=== PATIENT | male | born 1985 | race Caucasian/White ===

== ENCOUNTER 2017-01-28 17:16 | Emergency (ER) | payer SELFPAY ==
[2017-01-28] MEDS ORDERED: Aspirin 81 MG Tab.Chew PO ONE (17:24)
--- NOTE | 2017-01-28 17:24 | EDM.PDOC ---
ED HPI GENERAL MEDICAL PROBLEM - General Chief Complaint: Chest Pain Stated Complaint: HIGH BLOOD PRESSURE Time Seen by Provider: 01/28/17 17:23 Source of Information: Reports: Patient History Limitations: Reports: No Limitations - History of Present Illness INITIAL COMMENTS - FREE TEXT/NARRATIVE: HISTORY AND PHYSICAL: History of present illness: Patient is a 31-year-old male presents to the emergency room with complaints of midsternal chest pain. He states he was working this morning performing his normal job duties which are mildly physical when the midsternal chest pain started. States that he had some shortness of breath and a "funny sensation" in bilateral upper extremities. As the pain has not subsided he decided he wanted to be evaluated in the emergency room. He states "it's not so much pain more than just a dull pressure". Has a known history of hypertension but states he has never taken any medication for this. Current smoker, 20 year pack per day history. States his father has a history of heart disease. Review of systems: As per history of present illness and below otherwise all systems reviewed and negative. Past medical history: As per history of present illness and as reviewed below otherwise noncontributory. Surgical history: As per history of present illness and as reviewed below otherwise noncontributory. Social history: No reported history of drug or alcohol abuse. Family history: As per history of present illness and as reviewed below otherwise noncontributory. Physical exam: Gen.: Well-developed and well-nourished 31-year-old male. Able to speak in full sentences without shortness of breath. Alert and oriented. Appears in no acute distress. HEENT: Atraumatic, normocephalic, pupils reactive, negative for conjunctival pallor or scleral icterus, mucous membranes moist, throat clear, neck supple, nontender, trachea midline. Lungs: Clear to auscultation, breath sounds equal bilaterally, chest nontender. Heart: S1S2, regular, negative for clicks, rubs, or JVD. Abdomen: Soft, nondistended, nontender. Negative for masses or hepatosplenomegaly. Negative for costovertebral tenderness. Pelvis: Stable nontender. Genitourinary: Deferred. Rectal: Deferred. Extremities: Atraumatic, negative for cords or calf pain. Neurovascular unremarkable. Neuro: Awake, alert, oriented. Cranial nerves II through XII unremarkable. Cerebellum unremarkable. Motor and sensory unremarkable throughout. Exam nonfocal. Discussed patient's lab results, he states he currently is pain-free. He states he has been taking a friend's lisinopril at home to manage his blood pressure. 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 He reports "to be honest and came in here to get a prescription for this medication". He would like to go home. He does have a follow-up appointment at our clinic in 10 days. I will give him a limited amount of lisinopril until he is able to follow-up at his primary care provider's appointment. Patient is agreeable to plan of care and denies any further questions at this time. Diagnostics: CBC, CMP, troponin, EKG, one view chest Therapeutics: Aspirin Impression: Nonspecific chest pain Hypertension Plan: 1. Please take your lisinopril 1 tab once daily. Follow-up with your primary care provider, as he state you have an appointment in 10 days. They need to further manage her medications. 2. Return to the ED as needed and as discussed. Definitive disposition and diagnosis as appropriate pending reevaluation and review of above. Onset: Today Duration: Hour(s): Location: Reports: Chest Chest Pain Score (Numeric/FACES): 2 - Related Data Allergies Allergy/AdvReac Type Severity Reaction Status Date / Time No Known Allergies Allergy Verified 01/28/17 17:18 Home Meds: Home Meds . [No Known Home Meds] 01/28/17 [History] Past Medical History Cardiovascular History: Reports: Hypertension ED ROS GENERAL - Review of Systems Review Of Systems: ROS reveals no pertinent complaints other than HPI. ED EXAM, GENERAL - Physical Exam Exam: See Below (See dictation) Course - Vital Signs Last Recorded V/S: Last Vital Signs Temp 36.4 C 01/28/17 17:24 Pulse 89 01/28/17 17:24 Resp 18 01/28/17 17:24 BP 145/102 H 01/28/17 17:24 Pulse Ox 95 01/28/17 17:24 - Orders/Labs/Meds Orders: Active Orders 24 hr Category Date Time Status EKG Documentation Completion [RC] STAT Care 01/28/17 17:24 Active Chest 1V Frontal [CR] Stat Exams 01/28/17 17:24 Taken Labs: Laboratory Tests 01/28/17 01/28/17 Range/Units 17:32 17:32 WBC 11.66 H (4.0-11.0) K/uL RBC 5.37 (4.50-5.90) M/uL Hgb 17.1 H (13.0-17.0) g/dL Hct 48.0 (38.0-50.0) % MCV 89.4 (80.0-98.0) fL MCH 31.8 (27.0-32.0) pg MCHC 35.6 (31.0-37.0) g/dL RDW Std Deviation 42.6 (28.0-62.0) fl RDW Coeff of Harley 13 (11.0-15.0) % Plt Count 301 (150-400) K/uL MPV 10.80 (7.40-12.00) fL Add Manual Diff YES Neutrophils % (Manual) 74 (48.0-80.0) % Band Neutrophils % 4 % Lymphocytes % (Manual) 19 (16.0-40.0) % Monocytes % (Manual) 2 (0.0-15.0) % Eosinophils % (Manual) 1 (0.0-7.0) % Nucleated RBC % 0.0 /100WBC Absolute Seg Neuts 8.6 H (1.4-5.7) Band Neutrophils # 0.5 Lymphocytes # (Manual) 2.2 (0.6-2.4) Monocytes # (Manual) 0.2 (0.0-0.8) Eosinophils # (Manual) 0.1 (0.0-0.7) Nucleated RBCs # 0 K/uL Sodium 137 (136-146) mmol/L Potassium 4.0 (3.5-5.1) mmol/L Chloride 106 (98-110) mmol/L Carbon Dioxide 23 (21-31) mmol/L BUN 14 (6.0-23.0) mg/dL Creatinine 0.9 (0.6-1.5) mg/dL Est Cr Clr Drug Dosing 120.54 mL/min Estimated GFR (MDRD) > 60.0 ml/min Glucose 94 (60-110) mg/dL Calcium 9.7 (8.8-10.8) mg/dL Total Bilirubin 0.3 (0.1-1.5) mg/dL AST 38 (5-40) IU/L ALT 65 H (8-54) IU/L Alkaline Phosphatase 76 (40-150) Troponin I < 0.10 (0.0-0.29) NG/ML Total Protein 8.1 H (6.0-8.0) g/dL Albumin 4.7 (3.5-5.0) g/dL Globulin 3.4 (2.0-3.5) g/dL Albumin/Globulin Ratio 1.4 (1.3-2.8) Meds: Medications Discontinued Medications Generic Name Dose Route Start Last Admin Trade Name Shon PRN Reason Stop Dose Admin Aspirin 324 mg 01/28/17 17:24 01/28/17 17:32 Aspirin PO 01/28/17 17:25 324 mg ONETIME ONE Administration Lisinopril 10 mg 01/28/17 18:29 Prinivil PO 01/28/17 18:30 ONETIME ONE Departure - Departure Time of Disposition: 18:34 Disposition: Home, Self-Care 01 Clinical Impression: Nonspecific chest pain High blood pressure Qualifiers: Hypertension type: unspecified Qualified Code(s): I10 - Essential (primary) hypertension Referrals: PCP,None [Primary Care Provider] - Forms: ED Department Discharge Additional Instructions: My general discharge The following information is given to patients seen in the emergency department who are being discharged to home. This information is to outline your options for follow-up care. We provide all patients seen in our emergency department with a follow-up referral. The need for follow-up, as well as the timing and circumstances, are variable depending upon the specifics of your emergency department visit. If you don't have a primary care physician on staff, we will provide you with a referral. We always advise you to contact your personal physician following an emergency department visit to inform them of the circumstance of the visit and for follow-up with them and/or the need for any referrals to a consulting specialist. The emergency department will also refer you to a specialist when appropriate. This referral assures that you have the opportunity for follow-up care with a specialist. All of these measure are taken in an effort to provide you with optimal care, which includes your follow-up. Under all circumstances we always encourage you to contact your private physician who remains a resource for coordinating your care. When calling for follow-up care, please make the office aware that this follow-up is from your recent emergency room visit. If for any reason you are refused follow-up, please contact the [facility] Department at and asked to speak to the emergency department charge nurse. [facility] [address] [place] [id number] 1. Please take your lisinopril 1 tab once daily, this is an ALFIE-inhibitor antihypertensive medication. Follow-up with your primary care provider, as he state you have an appointment in 10 days. They need to further manage her medications. 2. Return to the ED as needed and as discussed. - My Orders Last 24 Hours: My Active Orders 01/28/17 17:24 EKG Documentation Completion [RC] STAT Chest 1V Frontal [CR] Stat - Assessment/Plan Last 24 Hours: My Active Orders 01/28/17 17:24 EKG Documentation Completion [RC] STAT Chest 1V Frontal [CR] Stat
[2017-01-28 18:02] LABS: CHLORIDE,CL 106 mmol/L (98-110); SODIUM,NA 137 mmol/L (136-146)
[2017-01-28] MEDS ORDERED: Lisinopril 10 MG Tab PO ONE (18:29)
--- NOTE | 2017-01-29 10:04 | CR ---
EXAM DATE: 01/28/17 PATIENT'S AGE: 31 Patient: ELVIRA SALAZAR Facility: [place], [place] Site . Site : 1985 Study: XRay Chest [id number]/20/2017 5:56:59 PM Ordering Physician: Doctor Fonseca Final Report: INDICATIONS: Chest pain. High blood pressure. Weakness and fatigue. TECHNIQUE: Chest 1 view. COMPARISON: None FINDINGS: No pneumothorax, pleural effusion or airspace consolidation. Cardiac and mediastinal contours are within normal limits. Upper abdomen and osseous structures show no acute abnormality. Bilateral nipple ornamentation. IMPRESSION: No evidence of acute cardiopulmonary disease. Dictated by Madhav Layton MD @ 01/28/2017 6:23:29 PM Dictated by: Madhav Layton MD @ 01/28/2017 18:23:42 (Electronic Signature) Report Signed by Proxy. [facility]
== END 2017-01-28 18:44 | disposition home or self-care (01) ==
LOC: MW.ED 17:16
DX: R07.89 Other chest pain (principal); I10 Essential (primary) hypertension
CPT/HCPCS: 36415; 71010; 80053; 84484; 85025; 93005; 99285; A9270

== ENCOUNTER 2019-04-25 08:27 | Emergency (ER) | payer OTHER ==
--- NOTE | 2019-04-25 09:02 | EDM.PDOC ---
ED HPI GENERAL MEDICAL PROBLEM - General Chief Complaint: Lower Extremity Injury/Pain Stated Complaint: RT KNEE PAIN Time Seen by Provider: 04/25/19 09:02 Source of Information: Reports: Patient - History of Present Illness INITIAL COMMENTS - FREE TEXT/NARRATIVE: Patient complains of right knee pain of moderate severity. Began around 7 or 730 this morning when he jumped off of a trailer. He said the distance that he jumped was about 2 feet above ground. He felt a popping sensation when he landed. He has pain that is worse in the anterior medial right knee. The region where he points is medial to the patella. He did not notice much swelling. He says the pain is worse if he tries to fully straighten (extend) the affected knee. Also worse with weightbearing. Says he has to bend the knee a bit so he can walk R knee Pain Score (Numeric/FACES): 6 - Related Data Allergies Allergy/AdvReac Type Severity Reaction Status Date / Time No Known Allergies Allergy Verified 01/28/17 17:18 Home Meds: Home Meds . [No Known Home Meds] 01/28/17 [History] Past Medical History Cardiovascular History: Reports: Hypertension Social & Family History - Caffeine Use Caffeine Use: Reports: Coffee, Energy Drinks, Soda, Tea Review of Systems - Review of Systems Review Of Systems: See Below Musculoskeletal: Reports: Joint Pain (ROS positive for rt knee pain, mild swelling.) Skin: Denies: Bruising Neurological: Denies: Numbness (ROS positive for rt knee pain.), Paresthesia ED EXAM, GENERAL - Physical Exam Exam: See Below Free Text/Narrative:: general: alert, well appearing, no acute distress HEENT: Atraumatic, normocephalic, pupils reactive, negative for conjunctival pallor or scleral icterus, mucous membranes moist, throat clear, handling oral secretions well. CV: good pulses in right lower extremity Skin: warm, dry, good turgor. Skin of right lower extremity warm, dry, well perfused. Two mm ecchymosis in the medial aspect of the right knee. Musculoskeletal: soft compartments in RLE. Walks with limp favoring RLE. Small amount of swelling of the proximal aspect of the right knee. + flexion and extension of the right knee, but extension increases pain. Prefers to hold the knee in about 60 degrees of flexion. No varus or valgus instabilities. No joint subluxation or dislocation. Extremities: Atraumatic, negative for cords or calf pain. Neurovascular unremarkable.No right lower extremity bony deformity or crepitus. Neuro: Awake, alert, oriented. Cranial nerves II through XII unremarkable. Sensation intact in right lower extremity.Motor and sensory unremarkable throughout. Impression: Right knee sprain, rule out fracture -Toradol -Right knee x-ray Course - Vital Signs Last Recorded V/S: Last Vital Signs Temp 97.4 F 04/25/19 08:44 Pulse 83 04/25/19 08:44 Resp 20 04/25/19 08:44 BP 148/97 H 04/25/19 08:44 Pulse Ox 98 04/25/19 08:44 - Orders/Labs/Meds Orders: Active Orders 24 hr Category Date Time Status Communication Order [RC] STAT Care 04/25/19 10:52 Active Ready for Discharge [RC] PER UNIT ROUTINE Care 04/25/19 10:56 Active Meds: Medications Discontinued Medications Generic Name Dose Route Start Last Admin Trade Name Shon PRN Reason Stop Dose Admin Ketorolac Tromethamine 60 mg 04/25/19 09:20 04/25/19 10:04 Toradol IM 04/25/19 09:21 Not Given ONETIME ONE - Radiology Interpretation Free Text/Narrative:: rt knee: no acute fx MDM Discussed with patient that while there is no bony injury, I suspect that there is a ligament injury. Explained ligamentous structures to tie bones together. Explained that the injuries to ligaments do not show up on x-ray and are best seen on MRI. Will give knee immobilizer and crutches. Is referred to medicine and Ortho clinics. Return here for new, changing, worsening symptoms. Over-the -counter ibuprofen as needed for pain. Rest, ice, compression, elevation. Departure - Departure Time of Disposition: 10:54 Disposition: Home, Self-Care 01 Condition: Good Clinical Impression: Sprain of knee - Discharge Information Instructions: Crutch Use, Adult, [id number], Knee Sprain, Adult, [id number] Referrals: PCP,None [Primary Care Provider] - 1 Week ( [facility] - Internal Medicine [address] [place] [id number] Follow up in medicine clinic within 3 to 5 days. [facility] - Orthopedic Clinic Professional [facility] [address] [place] [address], [address] [place] [address] Folow up in orthopedics clinic within 7 to 10 days.) Forms: ED Department Discharge Additional Instructions: For pain, take two or three 200 mg over the counter ibuprofen tabs with FOOD every 8 hours for up to five days. The following information is given to patients seen in the emergency department who are being discharged to home. This information is to outline your options for follow-up care. We provide all patients seen in our emergency department with a follow-up referral. The need for follow-up, as well as the timing and circumstances, are variable depending upon the specifics of your emergency department visit. If you don't have a primary care physician on staff, we will provide you with a referral. We always advise you to contact your personal physician following an emergency department visit to inform them of the circumstance of the visit and for follow-up with them and/or the need for any referrals to a consulting specialist. The emergency department will also refer you to a specialist when appropriate. This referral assures that you have the opportunity for follow-up care with a specialist. All of these measure are taken in an effort to provide you with optimal care, which includes your follow-up. Under all circumstances we always encourage you to contact your private physician who remains a resource for coordinating your care. When calling for follow-up care, please make the office aware that this follow-up is from your recent emergency room visit. If for any reason you are refused follow-up, please contact the [facility] Emergency Department at and ask to speak to the emergency department charge nurse. Sepsis Event Note - Evaluation Sepsis Screening Result: No Definite Risk - Focused Exam Date Exam was Performed: 04/25/19 Time Exam was Performed: 21:14 - My Orders Last 24 Hours: My Active Orders 04/25/19 10:52 Communication Order [RC] STAT 04/25/19 10:56 Ready for Discharge [RC] PER UNIT ROUTINE - Assessment/Plan Last 24 Hours: My Active Orders 04/25/19 10:52 Communication Order [RC] STAT 04/25/19 10:56 Ready for Discharge [RC] PER UNIT ROUTINE
[2019-04-25] MEDS ORDERED: Ketorolac 60 MG/2 ML SDV IM ONE (09:20)
--- NOTE | 2019-04-25 10:17 | CR ---
Right knee: AP, lateral and sunrise patellar views of the right knee were obtained. Comparison: No previous knee exam. Medial and lateral joint compartments are maintained in height. No joint effusion is seen. Right patellofemoral joint appears within normal limits. No acute fracture or other bony abnormality is identified. Impression: 1. No abnormality is appreciated on 3 view right knee exam. Diagnostic code #1 This report was dictated in Mountain Standard Time
== END 2019-04-25 11:15 | disposition home or self-care (01) ==
LOC: MW.ED 08:27
DX: S83.91XA Sprain of unspecified site of right knee, initial encounter (principal); I10 Essential (primary) hypertension; W17.89XA Other fall from one level to another, initial encounter; Y93.39 Activity, other involving climbing, rappelling and jumping off
CPT/HCPCS: 73562-26-RT; 73562-RT; 99282; 99283-25

== ENCOUNTER 2019-05-27 08:10 | Day surgery (SDC) | payer OTHER ==
[~2019-05-27 08:10] MED LIST: Lactated Ringers 1,000 ML IV SCH; ceFAZolin 2 GM in Premix Bag 1 BAG IV SCH
[2019-05-27] MEDS ORDERED: HYDROmorphone 2 MG/ML Syringe IVPUSH PRN (08:35)
[2019-05-27] MEDS ORDERED: fentaNYL 100 MCG/2 ML SDV IVPUSH PRN ×2 (08:35→11:14)
[2019-05-27] MEDS ORDERED: Acetaminophen 325 MG/10.15 ML ML PO ONE (09:20)
[2019-05-27] MEDS ORDERED: Bupivacaine 0.5% 30 ML SDV ONE (09:28)
[2019-05-27] MEDS ORDERED: Midazolam 1 MG/ML 2 ML SDV ONE (09:31)
[2019-05-27] MEDS ORDERED: fentaNYL 250 MCG/5 ML SDV ONE (09:31)
[2019-05-27] MEDS ORDERED: Lidocaine 2% 5 ML SDV ONE (09:31)
[2019-05-27] MEDS ORDERED: Dexamethasone 4 MG/ML 5 ML MDV ONE (09:32)
[2019-05-27] MEDS ORDERED: Bupivacaine 0.25%/EPINEPHrine 1:200,000 10 ML SDV ONE (09:33)
[2019-05-27] MEDS ORDERED: Sodium Chloride 0.9% 20 ML ONE (09:34)
--- NOTE | 2019-05-27 09:43 | PCM.PREANE ---
Preanesthetic Assessment - Anesthesia/Transfusion/Family Hx Anesthesia History: Prior Anesthesia Without Reaction Family History of Anesthesia Reaction: No Transfusion History: No Prior Transfusion(s) Intubation History: Unknown - Review of Systems General: No Symptoms Pulmonary: No Symptoms Cardiovascular: No Symptoms Gastrointestinal: No Symptoms Neurological: No Symptoms Other: Reports: None - Physical Assessment NPO Status Date: 05/26/19 NPO Status Time: 23:00 Vital Signs: Last Vital Signs Temp 36.4 C 05/27/19 08:30 Pulse 79 05/27/19 08:30 Resp 16 05/27/19 08:30 BP 155/88 H 05/27/19 08:30 Pulse Ox 99 05/27/19 08:30 Height: 5 ft 10 in Weight: 104.326 kg ASA Class: 2 Mental Status: Alert & Oriented x3 Airway Class: Mallampati = 2 Dentition: Reports: Dentures (upper) Thyro-Mental Finger Breadths: 3 Mouth Opening Finger Breadths: 3 ROM/Head Extension: Full Lungs: Clear to Auscultation, Normal Respiratory Effort Cardiovascular: Regular Rate, Regular Rhythm - Allergies Allergies/Adverse Reactions: Allergies Allergy/AdvReac Type Severity Reaction Status Date / Time No Known Allergies Allergy Verified 05/21/19 07:15 - Blood Blood Available: No - Anesthesia Plan Pre-Op Medication Ordered: None - Acknowledgements Anesthesia Type Planned: General Anesthesia (adductor canal nerve block for postoperative pain control) Pt an Appropriate Candidate for the Planned Anesthesia: Yes Alternatives and Risks of Anesthesia Discussed w Pt/Guardian: Yes Pt/Guardian Understands and Agrees with Anesthesia Plan: Yes PreAnesthesia Questionnaire HEENT History: Reports: Other (See Below) Other HEENT History: wears glasses, upper denture Cardiovascular History: Reports: Hypertension Respiratory History: Reports: None Gastrointestinal History: Reports: None Genitourinary History: Reports: None Musculoskeletal History: Reports: Fracture Other Musculoskeletal History: fx arm as a child Neurological History: Reports: None Psychiatric History: Reports: None Endocrine/Metabolic History: Reports: Obesity/BMI 30+ (BMI 33.0) Hematologic History: Reports: None Immunologic History: Reports: None Oncologic (Cancer) History: Reports: None Dermatologic History: Reports: None - Past Surgical History Head Surgeries/Procedures: Reports: None HEENT Surgical History: Reports: Eye Surgery, Tonsillectomy Cardiovascular Surgical History: Reports: None Respiratory Surgical History: Reports: None GI Surgical History: Reports: None Male Surgical History: Reports: None Endocrine Surgical History: Reports: None Neurological Surgical History: Reports: None Musculoskeletal Surgical History: Reports: None Oncologic Surgical History: Reports: None Dermatological Surgical History: Reports: None - SUBSTANCE USE Smoking Status *Q: Current Every Day Smoker (2 ppd) Tobacco Use Within Last Twelve Months: Cigarettes Days Per Week of Alcohol Use: 1 Recreational Drug Use History: No - HOME MEDS Home Medications: Home Meds Ibuprofen 2 tab PO ASDIRECTED PRN 05/21/19 [History] Lisinopril [Zestril] 40 mg PO DAILY 05/26/19 [History] amLODIPine [Norvasc] 5 mg PO DAILY 05/26/19 [History] Acetaminophen/oxyCODONE [Percocet 325-5 MG] 1 each PO Q6HR #28 tab 05/27/19 [Rx] - CURRENT (IN HOUSE) MEDS Current Meds: Current Medications Fentanyl (Sublimaze) 50 - 100 mcg IVPUSH Q5M PRN PRN Reason: Pain (severe 7-10) Hydromorphone HCl (Dilaudid) 1 - 2 mg IVPUSH ONETIME PRN PRN Reason: Pain Cefazolin Sodium/Dextrose 2 gm (/ Premix) 50 mls @ 100 mls/hr IV ONCALL SUDARSHAN Lactated Ringer's (Ringers, Lactated) 1,000 mls @ 100 mls/hr IV ASDIRECTED [facility] Last Admin: 05/27/19 08:40 Dose: 100 mls/hr Discontinued Medications Acetaminophen (Tylenol) 160 mg PO NOW ONE Stop: 05/27/19 09:21 Bupivacaine HCl (Marcaine 0.5%) Confirm Administered Dose 30 ml .ROUTE .STK-MED ONE Stop: 05/27/19 09:29 Bupivacaine HCl/Epinephrine Bitart (Marcaine 0.25%/Epinephrine 1:200,000) Confirm Administered Dose 10 ml .ROUTE .STK-MED ONE Stop: 05/27/19 09:34 Dexamethasone (Dexamethasone) Confirm Administered Dose 20 mg .ROUTE .STK-MED ONE Stop: 05/27/19 09:33 Fentanyl (Sublimaze) Confirm Administered Dose 250 mcg .ROUTE .STK-MED ONE Stop: 05/27/19 09:32 Acetaminophen (Ofirmev) Confirm Administered Dose 100 mls @ as directed .ROUTE .STK-MED ONE Stop: 05/27/19 09:29 Sodium Chloride (Normal Saline) Confirm Administered Dose 20 mls @ as directed .ROUTE .STK-MED ONE Stop: 05/27/19 09:35 Lidocaine (Xylocaine-Mpf 2%) Confirm Administered Dose 5 ml .ROUTE .STK-MED ONE Stop: 05/27/19 09:32 Midazolam HCl (Versed 1 Mg/Ml) Confirm Administered Dose 4 mg .ROUTE .STK-MED ONE Stop: 05/27/19 09:32
[2019-05-27] MEDS ORDERED: Propofol 200 MG/20 ML SDV ONE (10:01)
[2019-05-27] MEDS ORDERED: ceFAZolin/Dextrose,Iso-Osmotic 2 GM/50 ML Duplex Bag IV ONE (10:05)
[2019-05-27] MEDS ORDERED: HYDROmorphone 2 MG/ML Syringe ONE (10:45)
--- NOTE | 2019-05-27 11:08 | PCM.SN ---
- Free Text/Narrative Note: Patient is consented for preoperative adductor canal block for postop pain control. Patient states name and . Confirms correct side. Pre procedure HR 78, BP 154/95 and O2 100% on 2 L NC. Sedation given. Skin cleansed with chloraprep. Sterile drape. Mask and gloves worn. Ultrasound used to visualize nerve. 2% Lidocaine for skin. 20g Stimuplex needle passed easily under US guidance. Negative aspiration every 3 ml. 20 ml of 0.25% Marcaine with 4mg of Decadron used. Post procedure HR 80, BP 133/81 and 98% on 2L NC. Care to preop RN
[2019-05-27] MEDS ORDERED: 50% Dextrose in Water 50 ML Syringe IVPUSH PRN (11:14)
[2019-05-27] MEDS ORDERED: Albuterol 0.083% 2.5 MG/3 ML Neb Soln NEB PRN (11:14)
[2019-05-27] MEDS ORDERED: Naloxone 0.4 MG/ML Syringe IVPUSH PRN (11:14)
[2019-05-27] MEDS ORDERED: EPINEPHrine 1:10,000 1 MG/10 ML Syringe IVPUSH PRN (11:14)
[2019-05-27] MEDS ORDERED: Atropine 0.1 MG/ML 10 ML Syringe IVPUSH PRN ×2 (11:14)
--- NOTE | 2019-05-27 12:30 | PCM.POSTAN ---
POST ANESTHESIA ASSESSMENT - MENTAL STATUS Mental Status: Alert, Oriented - VITAL SIGNS Vital Signs: Last Vital Signs Temp 36.6 C 05/27/19 11:55 Pulse 82 05/27/19 12:25 Resp 12 05/27/19 12:25 BP 123/74 05/27/19 12:25 Pulse Ox 95 05/27/19 12:25 - RESPIRATORY Respiratory Status: Respiratory Rate WNL, Airway Patent, O2 Saturation Stable - CARDIOVASCULAR CV Status: Pulse Rate WNL, Blood Pressure Stable - GASTROINTESTINAL GI Status: No Symptoms - PAIN Pain Score: 2 - POST OP HYDRATION Hydration Status: Adequate & Stable
[2019-05-27] MEDS ORDERED: oxyCODONE 5 MG Tab PO ONE (12:42)
--- NOTE | 2019-05-27 12:42 | PCM.OPNOTE ---
- General Post-Op/Procedure Note Date of Surgery/Procedure: 05/27/19 Operative Procedure(s): right acl reconstruction. right medial femoral chondroplasty. 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 right acl tear Post-Op Diagnosis: Same plus right medial meniscus tear Anesthesia Technique: General ET Tube Primary Surgeon: Claude Johnson Anesthesia Provider: Mik Gtz Coil Cutter: Clare Hwang EBL in mLs: 10 Complications: None Condition: Good Free Text/Narrative:: Intake & Output 05/26/19 05/27/19 05/27/19 22:59 06:59 14:59 Intake Total 1500 Balance 1500
[2019-05-27] MEDS ORDERED: Ketorolac 30 MG/ML SDV IVPUSH ONE (12:45)
--- NOTE | 2019-05-27 13:38 | PCM48HPAN ---
Post Anesthesia Note - EVALUATION WITHIN 48HRS OF ANESTHETIC Vital Signs in Normal Range: Yes Patient Participated in Evaluation: Yes Respiratory Function Stable: Yes Airway Patent: Yes Cardiovascular Function Stable: Yes Hydration Status Stable: Yes Pain Control Satisfactory: Yes Nausea and Vomiting Control Satisfactory: Yes Mental Status Recovered: Yes Vital Signs: Last Vital Signs Temp 36.1 C 05/27/19 12:35 Pulse 82 05/27/19 13:05 Resp 16 05/27/19 13:05 BP 124/76 05/27/19 13:05 Pulse Ox 96 05/27/19 13:05
--- NOTE | 2019-05-27 17:44 | OR ---
SURGEON: Claude Johnson DATE OF PROCEDURE: 05/27/2019 PREOPERATIVE DIAGNOSES: Right knee medial femoral chondromalacia and right anterior cruciate ligament tear. POSTOPERATIVE DIAGNOSES: Right knee medial femoral chondromalacia and right anterior cruciate ligament tear plus right medial meniscus tear. PRIMARY SURGEON: Claude Johnson DO BEARING MAKER: FRANCOIS Tena ROLE OF BEARING MAKER: Nurse practitioner, FRANCOIS Tena, played an essential role in assisting in this case, helping to position the patient, retract structures as needed, as well as suturing and cutting sutures as indicated. Her presence improved patient's safety and decreased operative time. ANESTHESIA: General endotracheal intubation. FLUID: Lactated Ringer's solution. ESTIMATED BLOOD LOSS: 10 mL. COMPLICATIONS: None. SPECIMEN: None. DISCHARGE DISPOSITION: Stable to PACU. HISTORY AND INDICATIONS FOR THE PROCEDURE: The patient was seen preoperatively in the clinic. Preoperative imaging confirmed the above-mentioned diagnosis. Risks and goals of the procedure were explained to the patient and informed consent was obtained. DETAILS OF PROCEDURE: The patient was seen preoperatively by myself and the Anesthesia staff in the preoperative holding area where the operative site was marked. He was brought to the operative suite by the Anesthesia staff where general anesthesia was administered. His left lower extremity was placed into a stirrup. His right lower extremity was placed into a leg neal. A well-padded tourniquet had been placed on his right thigh. The right lower extremity was then prepped and draped in a sterile manner. Time-out was called identifying the correct patient, the correct procedure, the correct site, and that antibiotics had been given within appropriate period of time. During the procedure, my first grade teacher was preparing the graft for insertion and attaching it to the Alexia device. I started by making medial and lateral portals and then used the lateral portal, entered with a trocar, and then inspected the patellofemoral joint. This had mild lateral chondromalacia. Minimal plica was seen. Both gutters did not have any osteophytes. Then the lateral compartment was inspected. No lateral meniscus tear was found. The medial compartment was inspected after using a shaver for visualization. This did show a small radial anterior medial meniscus tear. I then shaved and used the ablation unit to stabilize this. There was a chondromalacia medial to the weightbearing surface on the medial femoral condyle. I then used a shaver to shave off some of the loose cartilage and then used an ablation unit to stabilize it. I then used a trocar to make some small 2 mm holes in the subchondral bone in an attempt to encourage fibroblast formation and stabilization of the cartilage defect. The ACL was inspected. The ACL had ruptured. The stump was still present. I then used the shaver to remove the remainder of the stump and then cleared the rest with an ablation unit. The PCL was intact. I cleared the lateral notch and then used a bur to perform a notchplasty. After this had been accomplished, I then a measured my graft, which was 9.5 mm, and then inserted a size 7 guide at approximately the 9:30 to 10 o'clock position in the posterior lateral notch. I then inserted my guidewire. I ran my guidewire out of the lateral cortex and out through the skin and used a blade to allow to pass out the skin. I then inserted this at the appropriate depth. For the depth measurement, I used my gauge, which measured 46 mm. I then marked from the button 46 mm and then 25 mm on the graft. I then attached my suture passing suture through the pin and then pulled it out through the lateral cortex. I then attached this with a snap from the medial portal and then concentrated on my tibial preparation. A horizontal incision was made 3 fingerbreadths distal to the joint line just off the medial edge of the tibia. I then used my 55-degree angle guide, placed it in the middle of the stump, and then tightened and then ran my guide pin up through the proximal tibial cortex. I then removed my guide and then reamed to 9.5 mm. Please note that prior to removing my pin out of the femur, I had used a 4.5 mm flexible reamer to go out through the lateral cortex and then drilled to a depth of 25 mm with a 9.5 mm proximal reamer. After the tibia had been prepared, I then used pituitaries and grabbed my suture passing suture. I attached my Alexia button and then passed that out the lateral femoral cortex using the suture passing suture. I then brought the graft through the tibial tunnel, and then under direct visualization, saw my button pass and then pulled after it passed through the cortex by pulling it with green-striped sutures. I then flipped the button with my green sutures and put tension to the tibial side ensuring that I had good fixation. I then pulled my white sutures until the graft had passed to 25 mm depth. I then under tension of the distal graft, cycled the knee, and then inserted my Nitinol guidewire and then a 10 mm PEEK interference screw through the tibia in approximately 15 degrees of flexion. I then removed my guidewire and inspected the ACL, which had good tension with negative anterior drawer. It was in good repair. I did remove a small amount of tibia, which had flipped out from my reaming site. I cleaned that up with a shaver. We then removed all of our instruments from the knee and injected our local and then my assist closed with 3-0 nylon sutures followed by Betadine-soaked Adaptic, fluffs, and an Jeff wrap. The patient was then allowed to awaken from general anesthesia and taken to the PACU in stable condition. [id number] / MODL /[id number]
== END 2019-05-27 14:15 | disposition home or self-care (01) ==
LOC: MW.SDS 08:10
PROVIDERS: ATTEND Orthopaedic Surgery
DX: S83.511A Sprain of anterior cruciate ligament of right knee, initial encounter (principal); S83.241A Other tear of medial meniscus, current injury, right knee, initial encounter; M94.261 Chondromalacia, right knee; I10 Essential (primary) hypertension; F17.210 Nicotine dependence, cigarettes, uncomplicated; E66.9 Obesity, unspecified; Z79.899 Other long term (current) drug therapy; Z68.33 Body mass index [BMI] 33.0-33.9, adult
CPT/HCPCS: 29881; 29888; A9270; C1713; C1762; C1776; J0131; J0690; J1100; J1170; J1885; J2001; J2250; J2704; J3010; J3490; J7120; 01400